=== PATIENT | female | born 1945 | race Caucasian/White ===

== ENCOUNTER 2018-04-24 09:49 | Inpatient (IN) | payer MEDICARE, OTHER ==
[~2018-04-24] VITALS: Ht 165.1 cm; Wt 56.7 kg
[2018-04-24] MEDS ORDERED: TEMAZEPAM 7.5 MG CAPSULE PO PRN (13:30)
[2018-04-24] MEDS ORDERED: MAGNESIUM HYDROXIDE 30 ML UDC PO PRN (13:30)
[2018-04-24] MEDS ORDERED: MAG HYDROX/AL HYDROX/SIMETH 30 ML UDC PO PRN (13:30)
[2018-04-24] MEDS ORDERED: LORAZEPAM 0.5 MG TABLET PO PRN (13:30)
[2018-04-24 17:18] VITALS: BP 131/60
[2018-04-24] MEDS: BENZTROPINE MESYLATE (1 MG) 1 MG TABLET PO SCH (17:32)
[2018-04-24] MEDS: risperiDONE 1 MG TABLET PO SCH (17:33)
--- NOTE | 2018-04-24 17:45 | NUR ---
GPS/RN-NOTES ADMITTED 72 YEARS OLD FEMALE PATIENT FROM [facility]. PATIENT ON 5150 FOR GRAVELY DISABLE ADULT. UPON FACE TO FACE ASSESSMENT PATIENT ALERT ORIENTED X2 WITH CONFUSION AMBULATORY WITH STEADY GAIT. PATIENT'S RIGHT WAS DISCUSS WITH THE PATIENT WITH UNDERSTANDING A BOOKLET WAS GIVEN TO THE PATIENT. PATIENT WAS ORIENTED TO THE UNIT AND UNIT POLICIES. DR. LORENZO ( PSYCHIATRIST ) MADE AWARE BY THE CHARGE NURSE WITH ORDERS. ALSO DR. FONTENOT ( UI SOFTWARE ENGINEER) SEEN THE PATIENT. CALLED [facility] [phone] ( PT. RESPONSIBLE REPUBLICAN)AND LEFT THE MGS. VIA VOICE MAIL. CONTRA BAND AND BODY ASSESSMENT DONE. MRSA SWAB DONE .
[2018-04-24 20:00] VITALS: BP 120/50
[2018-04-25 06:46] LABS: CHOLESTEROL 156 mg/dL (<200); HDL CHOLESTEROL 46 mg/dL (40-60); LDL 105 mg/dL (0-99); TRIGLYCERIDES 59 mg/dL (30-150)
[2018-04-25 06:48] LABS: ALANINE AMINOTRANSFERASE 14 U/L (12-78); ALBUMIN 3.2 g/dL (3.4-5.0); ALKALINE PHOSPHATASE 61 U/L (46-116); ASPARTATE AMINOTRANSFERASE 20 U/L (15-37); BILIRUBIN,TOTAL 0.3 mg/dL (0.2-1.0); CARBON DIOXIDE 29 mmol/L (21-32); CHLORIDE 106 mmol/L (98-107); CREATININE 0.9 mg/dL (0.6-1.3); GLUCOSE 90 mg/dL (74-106); POTASSIUM 3.8 mmol/L (3.5-5.1); SODIUM SERUM 141 mmol/L (136-145); TOTAL PROTEIN, SERUM 6.7 g/dL (6.4-8.2); UREA NITROGEN, BLOOD 19 mg/dL (7-18)
[2018-04-25 08:00] VITALS: BP 138/70
[2018-04-25] MEDS: risperiDONE 1 MG TABLET PO SCH ×2 (08:48→16:35)
[2018-04-25] MEDS: BENZTROPINE MESYLATE (1 MG) 1 MG TABLET PO SCH ×2 (08:48→16:35)
--- NOTE | 2018-04-25 15:54 | NUR ---
Initial Discharge Plan: Pt currently resides home alone at [facility] [place] [address]; ([phone]). Per pt, she would like to return home. SHENG will work with the pt and the MD regarding appropriate discharge planning. SW will form a safe and proper discharge.
[2018-04-25 16:00] VITALS: BP 131/64
[2018-04-25 20:00] VITALS: BP 113/51
[2018-04-26 08:00] VITALS: BP 144/67
[2018-04-26] MEDS: BENZTROPINE MESYLATE (1 MG) 1 MG TABLET PO SCH ×2 (08:36→16:31)
[2018-04-26] MEDS: risperiDONE 1 MG TABLET PO SCH ×2 (08:36→16:31)
[2018-04-26 16:08] VITALS: BP 146/71
[2018-04-26 20:00] VITALS: BP 138/55
[2018-04-26] MEDS: MUPIROCIN OINT 2% 22 GM TUBE SCH (20:57)
[2018-04-27 08:31] VITALS: BP 167/80
[2018-04-27] MEDS: BENZTROPINE MESYLATE (1 MG) 1 MG TABLET PO SCH ×3 (08:34→17:46)
[2018-04-27] MEDS: risperiDONE 1 MG TABLET PO SCH ×3 (08:34→17:46)
[2018-04-27] MEDS: MUPIROCIN OINT 2% 22 GM TUBE SCH ×2 (08:44→21:10)
[2018-04-27 16:00] VITALS: BP 157/65
--- NOTE | 2018-04-27 18:23 | NUR ---
GPS/RN PT STRONGLY REFUSED MEDS SCHEDULED FOR 1700. OFFERED X3. PT STATES: ' I NEVER TAKE MEDICATIONS TWICE DAILY..."
[2018-04-27 20:00] VITALS: BP 147/72
[2018-04-28 07:22] LABS: CALCIUM, SERUM 8.8 mg/dL (8.5-10.1); CARBON DIOXIDE 28 mmol/L (21-32); CHLORIDE 109 mmol/L (98-107); CREATININE 0.7 mg/dL (0.6-1.3); GLUCOSE 98 mg/dL (74-106); POTASSIUM 4.3 mmol/L (3.5-5.1); SODIUM SERUM 144 mmol/L (136-145); UREA NITROGEN, BLOOD 20 mg/dL (7-18)
[2018-04-28 08:00] VITALS: BP 150/70
[2018-04-28] MEDS: risperiDONE 1 MG TABLET PO SCH ×2 (08:47→16:28)
[2018-04-28] MEDS: BENZTROPINE MESYLATE (1 MG) 1 MG TABLET PO SCH ×2 (08:48→16:27)
[2018-04-28] MEDS: MUPIROCIN OINT 2% 22 GM TUBE SCH ×2 (11:20→21:22)
--- NOTE | 2018-04-28 15:48 | NUR ---
SHENG and the psychiatrist, Dr. Gibson, talked to the pt to ask if there is anyone we can talk to in her life who can verify that her home is a safe discharge. The pt was guarded and stated that she would provide that personal information at a later time.
[2018-04-28 16:00] VITALS: BP 140/86
[2018-04-28 18:00] VITALS: BP 140/86
--- NOTE | 2018-04-28 19:30 | NUR ---
GPS RN NOTE, RECEIVED PATIENT AWAKE AND IN BED, NO S/S OR COMPLAINTS OF PAIN AT THIS TIME. PATIENT IS DISPLAYING NO S/S OF APPARENT DISTRESS AT THIS TIME. PATIENT BREATHING IS UNLABORED WITH EQUAL RISE AND FALL OF THE CHEST. PATIENT IS ALERT AND ORIENTED X 2 ON ROOM AIR WITH A SPO2 OF 96%. PATIENT IS MED COMPLIANT, CALM, COOPERATIVE, DISORGANIZED, CONFUSED AT TIMES, AND NEEDS REDIRECTION. PATIENT DENIES SUICIDE IDEATIONS AND HOMICIDAL IDEATIONS AT THIS TIME. PATIENT ASSISTED WITH TURNING AND REPOSITIONING Q 2HRS AND PRN FOR COMFORT AND CIRCULATION. PATIENT HAS NO NEEDS AT THIS TIME. PATIENT EDUCATED ON THE USE OF THE CALL CRANE. PATIENT BED SIDE RAILS UP X 2 FOR SAFETY, BED IS LOCKED, LOW, AND I WILL CONTINUE TO MONITOR AND MAINTAIN SAFETY Q15 MIN WITH THE HELP OF STAFF.
[2018-04-28 20:23] VITALS: BP 145/68
[2018-04-29 08:30] VITALS: BP 158/61
[2018-04-29] MEDS: risperiDONE 1 MG TABLET PO SCH ×2 (09:14→21:20)
[2018-04-29] MEDS: BENZTROPINE MESYLATE (1 MG) 1 MG TABLET PO SCH ×2 (09:14→17:00)
[2018-04-29] MEDS: MUPIROCIN OINT 2% 22 GM TUBE SCH ×2 (09:15→21:17)
[2018-04-29 16:00] VITALS: BP 123/70
[2018-04-29 20:59] VITALS: BP 137/63
[2018-04-30 08:00] VITALS: BP 154/78
[2018-04-30] MEDS: risperiDONE 1 MG TABLET PO SCH ×2 (08:53→21:13)
[2018-04-30] MEDS: BENZTROPINE MESYLATE (1 MG) 1 MG TABLET PO SCH ×2 (09:02→16:28)
[2018-04-30] MEDS: MUPIROCIN OINT 2% 22 GM TUBE SCH ×2 (09:48→21:12)
[2018-04-30 16:12] VITALS: BP 161/98
[2018-04-30 20:30] VITALS: BP 153/70
--- NOTE | 2018-05-01 08:00 | NUR ---
GPS RN AM NOTES RECEIVED PATIENT IN BED, AWAKE, CALM AND COOPERATIVE. NO DISTRESS, NO SOB NOTED. VERBALLY RESPONSIVE.NO C/O PAIN OR DISCOMFORT AT THIS TIME. ALL NEEDS ATTENDED AND MET. KEPT COMFORTABLE. DENIES SI/HI AT THIS TIME. SAFETY PRECAUTIONS OBSERVED. WILL MONITOR PT CLOSELY
[2018-05-01 08:29] VITALS: BP 170/84
[2018-05-01] MEDS: MUPIROCIN OINT 2% 22 GM TUBE SCH ×2 (08:58→20:59)
[2018-05-01] MEDS: BENZTROPINE MESYLATE (1 MG) 1 MG TABLET PO SCH ×2 (08:59→17:15)
[2018-05-01] MEDS: risperiDONE 1 MG TABLET PO SCH ×4 (08:59→21:00)
--- NOTE | 2018-05-01 12:14 | NUR ---
SW called the number on the face sheet ([phone]) for the pt because she is still unable to provide any other contact information and the number was not accurate. A man picked up the phone and stated that a Carin Fredy cannot be reached at that number.
--- NOTE | 2018-05-01 12:19 | NUR ---
SW and psychiatrist, Dr. Tim, went to speak to the pt about providing contact information for the SW to follow up on so that we can ensure a safe discharge plan. Pt stated that she has a home that she does not feel ready to return to at this time and stated that she needs her phone.
[2018-05-01 16:45] VITALS: BP 159/70
--- NOTE | 2018-05-01 18:12 | NUR ---
PT ATE DINNER IN BED.WITH NO SI/HI EPISODE AND IS IN A GOOD MOOD GETTING ALONG WITH HER ROOMATE.TOOK ALL HER MEDS WITHOUT DIFFICULTY.WILL CONTINUE TO MONITOR.
[2018-05-01 20:00] VITALS: BP 124/54
[2018-05-01] MEDS: CARVEDILOL 3.125 MG TABLET PO SCH (20:59)
--- NOTE | 2018-05-01 21:00 | NUR ---
BP 124/54, HR 58, COREG 3,125 MG TAB 1 PO NOT GIVEN.
[2018-05-02 08:00] VITALS: BP 161/79
[2018-05-02] MEDS: BENZTROPINE MESYLATE (1 MG) 1 MG TABLET PO SCH ×2 (08:37→16:36)
[2018-05-02] MEDS: risperiDONE 1 MG TABLET PO SCH ×3 (08:38→21:43)
[2018-05-02] MEDS: CARVEDILOL 3.125 MG TABLET PO SCH ×2 (08:38→21:45)
[2018-05-02] MEDS: MUPIROCIN OINT 2% 22 GM TUBE SCH ×2 (08:40→21:49)
--- NOTE | 2018-05-02 15:09 | NUR ---
SW went in to speak to the pt and she stated that she does not have any family or friends. She stated that she is also unsure of if she wants to return home. Pt stated that she is feeling better and affect seems to be calm and pleasant.
[2018-05-02 16:00] VITALS: BP 132/60
[2018-05-02 20:00] VITALS: BP 138/66
[2018-05-03 08:00] VITALS: BP 150/80
[2018-05-03] MEDS: risperiDONE 1 MG TABLET PO SCH ×3 (08:49→21:02)
[2018-05-03] MEDS: CARVEDILOL 3.125 MG TABLET PO SCH ×2 (08:50→21:02)
[2018-05-03] MEDS: BENZTROPINE MESYLATE (1 MG) 1 MG TABLET PO SCH ×2 (08:50→16:48)
[2018-05-03] MEDS: MUPIROCIN OINT 2% 22 GM TUBE SCH ×2 (08:51→21:03)
[2018-05-03] MEDS: AMLODIPINE BESYLATE 5 MG TABLET PO SCH (09:00)
[2018-05-03 16:00] VITALS: BP 148/67
[2018-05-03 20:13] VITALS: BP 144/65
[2018-05-04 08:00] VITALS: BP 158/69
[2018-05-04] MEDS: AMLODIPINE BESYLATE 5 MG TABLET PO SCH (09:15)
[2018-05-04] MEDS: BENZTROPINE MESYLATE (1 MG) 1 MG TABLET PO SCH ×2 (09:17→16:52)
[2018-05-04] MEDS: CARVEDILOL 3.125 MG TABLET PO SCH ×3 (09:17→20:43)
[2018-05-04] MEDS: risperiDONE 1 MG TABLET PO SCH ×3 (09:28→21:58)
[2018-05-04] MEDS: MUPIROCIN OINT 2% 22 GM TUBE SCH ×2 (12:42→20:31)
[2018-05-04 16:00] VITALS: BP 167/67
--- NOTE | 2018-05-04 19:30 | NUR ---
RECEIVED PATIENT IN BED AWAKE, AO X 3, ABLE TO MAKE NEEDS KNOWN. NO ACUTE DISTRESS NOTED. DENIES ANY PAIN AT THIS TIME. SAFETY REMINDERS GIVEN. ON LOW BED WITH BILATERAL UPPER SIDE RAILS UP. CALL CRANE WITHIN EASY REACH. WILL CONTINUE TO MONITOR.
[2018-05-04 20:00] VITALS: BP 141/58
--- NOTE | 2018-05-04 20:44 | NUR ---
PATIENT REFUSED COREG. EDUCATION GIVEN. PATIENT STRONGLY REFUSED; GOT EXTREMELY ANGRY. COREG NOT GIVEN.
--- NOTE | 2018-05-04 21:58 | NUR ---
PATIENT REFUSED RISPERDAL;THREW MEDICINE AND APPLESAUCE TO NURSE. EDUCATION GIVEN. PATIENT IS VERY ANGRY. RISPERDAL NOT GIVEN.
--- NOTE | 2018-05-05 06:00 | NUR ---
PATIENT ASLEEP, EASILY AROUSABLE. RESPIRATIONS EVEN. NO SIGNS OF PAIN NOTED. NEEDS ATTENDED. SAFETY PRECAUTIONS AND COMFORT MEASURES IN PLACE. WILL GIVE REPORT TO DAY SHIFT FOR CONTINUITY OF CARE.
[2018-05-05 08:00] VITALS: BP 146/60
[2018-05-05] MEDS: AMLODIPINE BESYLATE 5 MG TABLET PO SCH (08:56)
[2018-05-05] MEDS: risperiDONE 1 MG TABLET PO SCH ×3 (08:56→21:03)
[2018-05-05] MEDS: BENZTROPINE MESYLATE (1 MG) 1 MG TABLET PO SCH ×2 (08:56→17:45)
[2018-05-05] MEDS: CARVEDILOL 3.125 MG TABLET PO SCH ×2 (08:57→20:59)
[2018-05-05] MEDS: MUPIROCIN OINT 2% 22 GM TUBE SCH ×2 (09:02→21:18)
--- NOTE | 2018-05-05 10:36 | NUR ---
SW spoke to the pt who became agitated when asked questions about her home. She became verbally aggressive with the SW and stated that she wants to stay in the hospital until she receives the appropriate amount of care.
--- NOTE | 2018-05-05 14:23 | NUR ---
SHENG called Magdalena Lindsey ([phone]), from [facility], and left a message on her voicemail stating that the pt needs transportation back to [facility] tomorrow.
[2018-05-05 16:00] VITALS: BP 140/73
[2018-05-05 21:13] VITALS: BP 129/57
[2018-05-06 08:00] VITALS: BP 118/65
[2018-05-06] MEDS: BENZTROPINE MESYLATE (1 MG) 1 MG TABLET PO SCH (08:39)
[2018-05-06] MEDS: risperiDONE 1 MG TABLET PO SCH ×2 (08:39→13:23)
[2018-05-06 08:40] VITALS: BP 116/65
[2018-05-06] MEDS: CARVEDILOL 3.125 MG TABLET PO SCH (08:40)
[2018-05-06] MEDS: AMLODIPINE BESYLATE 5 MG TABLET PO SCH (08:40)
[2018-05-06] MEDS: MUPIROCIN OINT 2% 22 GM TUBE SCH (08:49)
--- NOTE | 2018-05-06 12:00 | NUR ---
SHENG called [facility] ([phone]) and arranged transportation with a man named Lavonne for a 12:30-1pm fiber picker.
--- NOTE | 2018-05-06 14:13 | NUR ---
SHENG called Lavonne ([phone]) at [facility] and confirmed that the transportation was on their way to pick up operator the pt.
--- NOTE | 2018-05-06 14:30 | NUR ---
[id number]: PT IS 72 YEARS OLD FEMALE DISCHARGE TO HOME LOCATED AT [address] [place] [address], [facility] [address]; [phone] IN STABLE CONDITION. COMPLIANT WITH MEDICATIONS, COOPERATIVE WITH TREATMENT PLANS. PT DENIES SI/HI/AVH AND INSTRUCTED TO GO TO THE CLOSEST ER IF DEVELOPING SI/HI. BEHAVIOR IMPROVED, PSYCHIATRIC TX PLANS MET, MEDICAL TX PLAN DIFFERED FOR CONTINUAL MONITORING. EDUCATED PT ABOUT AFTER CARE PLAN AND COPY PROVIDED. RETURNED PERSONAL BELONGINGS TO PT. MEDICATION RECONCILED WITH DR. LORENZO AND DR. VARELA. PT SIGNED DISCHARGE PAPERWORK. SKIN INTACT. PT LEFT VIA POLICE JUDGE FROM [place] NAMED BETSY.
--- NOTE | 2018-05-06 15:09 | NUR ---
SHENG faxed a home health referral to [facility] to the fax number: [phone].
--- NOTE | 2018-05-06 15:15 | NUR ---
Pt was referred to [facility] located at [address] [place] [address] [address], [place] [address]; p: . A fax was sent with the pt's information to the fax number: .
--- NOTE | 2018-05-06 15:15 | NUR ---
Discharge Note: Pt was discharged home to [address] [place] [address]; ([phone]). Pts city driver from [place] arrived around 2PM and transported her back to her home. Upon discharge, the pt appeared to be in a euthymic mood with a calm affect. Pt was content about being discharged home because she was concerned that she would be placed in a long-term facility. Pt denied both suicidal and homicidal ideation upon discharge as well as both auditory and visual hallucinations. Pt was referred to [facility] and her packet was faxed to [phone]. Pt was also referred to be under the care of a psychiatrist at [facility] located at [address] [facility] [address], [place] [address]; p: and f: and was referred to an seam feller, Dr. Clay Barrett, located at [address], [place] [address]; p: .
== END 2018-05-06 14:30 | disposition home or self-care (01) | DRG 885 ==
LOC: GPS 12:31
PROVIDERS: ADMIT Psychiatry & Neurology Psychiatry; ATTEND Family Medicine
DX: F25.0 Schizoaffective disorder, bipolar type (principal); N17.0 Acute kidney failure with tubular necrosis; K21.9 Gastro-esophageal reflux disease without esophagitis; F41.0 Panic disorder [episodic paroxysmal anxiety]; E86.9 Volume depletion, unspecified; I10 Essential (primary) hypertension; Z73.6 Limitation of activities due to disability; F41.9 Anxiety disorder, unspecified; Z22.322 Carrier or suspected carrier of Methicillin resistant Staphylococcus aureus; F29 Unspecified psychosis not due to a substance or known physiological condition
CPT/HCPCS: 36415; 80048-TC; 80053-TC; 80061-TC; 87081-TC; Z7610

== ENCOUNTER 2019-01-24 10:37 | Inpatient (IN) | payer MEDICARE, OTHER ==
[~2019-01-24] VITALS: Ht 165.1 cm; Wt 65.8 kg
[2019-01-24] MEDS ORDERED: LORAZEPAM 0.5 MG TABLET PO PRN (11:00)
[2019-01-24] MEDS ORDERED: MAGNESIUM HYDROXIDE 30 ML UDC PO PRN (11:00)
[2019-01-24] MEDS ORDERED: MAG HYDROX/AL HYDROX/SIMETH 30 ML UDC PO PRN (11:00)
[2019-01-24] MEDS ORDERED: NITR100C6 PO (11:09)
[2019-01-24] MEDS ORDERED: AMLO5TAB9 PO (11:09)
[2019-01-24 11:30] VITALS: BP 142/72
--- NOTE | 2019-01-24 12:55 | NUR ---
GPS/RN-NOTES ADMITTED 73 YEARS OLD FEMALE PATIENT. UPON FACE TO FACE ASSESSMENT,PATIENT ON 5150 HOLD FOR DTS, ADVISEMENT AND PATIENT'S RIGHT WAS REVIEWED AND GIVEN TO THE PATIENT .PATIENT ALERT ORIENTED X3 . PATIENT AMBULATORY STEADY GAIT. PATIENT DID NOT VERBALIZE SI/HI,DENIES VISUAL /AUDITORY HALLUCINATION AT THIS TIME. PATIENT WAS ORIENTED IN THE UNIT AND UNIT POLICIES. FULL BODY ASSESSMENT DONE . MRSA DONE SENT TO THE LAB. DR. RASHEED ( PSYCHIATRIST) SEEN THE PATIENT WITH ORDERS. SANDRA MALIK (INDUSTRIAL ENG) ALSO SEEN THE PATIENT AND WILL RECONCILE PATIENT'S MEDICATIONS.PATIENT STATED " I DON'T WANT ANYONE TO KNOW THAT I'M HERE,I ALREADY SIGN THE CONSENT" . PATIENT WAS COOPERATIVE DURING ADMISSION PROCESS.
[2019-01-24 13:02] LABS: BASOPHILS % (AUTO) 0.8 % (0.0-2.0); EOSINOPHILS % (AUTO) 6.7 % (0.0-6.0); HEMATOCRIT 41 % (33-45); HEMOGLOBIN 13.5 g/dL (11.5-14.8); LYMPHOCYTES # (AUTO) 1.6 /CMM (0.8-4.8); LYMPHOCYTES % (AUTO) 26.6 % (20.0-44.0); MEAN CORPUSCULAR HGB CONC 33 g/dl (31.0-36.0); MEAN CORPUSCULAR VOLUME 90 fL (82-100); MONOCYTES # (AUTO) 0.4 /CMM (0.1-1.30); MONOCYTES % (AUTO) 7.4 % (2.0-12.0); NEUTROPHILS # (AUTO) 3.5 /CMM (1.8-8.9); NEUTROPHILS % (AUTO) 58.5 % (43.0-81.0); PLATELET COUNT (AUTO) 204 /CMM (150-450); RED BLOOD CELL COUNT(AUTO) 4.52 MIL/uL (4.0-5.2); WHITE BLOOD COUNT (AUTO) 5.9 K/uL (4.3-11.0)
[2019-01-24 13:45] LABS: ALANINE AMINOTRANSFERASE 19 U/L (12-78); ALBUMIN 3.6 g/dL (3.4-5.0); ALKALINE PHOSPHATASE 65 U/L (46-116); ASPARTATE AMINOTRANSFERASE 17 U/L (15-37); BILIRUBIN,TOTAL 0.5 mg/dL (0.2-1.0); CALCIUM, SERUM 8.9 mg/dL (8.5-10.1); CARBON DIOXIDE 28 mmol/L (21-32); CHLORIDE 107 mmol/L (98-107); GLUCOSE 126 mg/dL (74-106); MAGNESIUM 2.1 mg/dL (1.8-2.4); PHOSPHORUS 3.1 mg/dL (2.5-4.9); POTASSIUM 3.3 mmol/L (3.5-5.1); SODIUM SERUM 143 mmol/L (136-145); TOTAL PROTEIN, SERUM 7.1 g/dL (6.4-8.2); UREA NITROGEN, BLOOD 13 mg/dL (7-18)
[2019-01-24 13:46] LABS: CHOLESTEROL 145 mg/dL (<200); HDL CHOLESTEROL 46 mg/dL (40-60); LDL 92 mg/dL (0-99); TRIGLYCERIDES 61 mg/dL (30-150)
[2019-01-24 13:47] LABS: THYROID STIMULATING HORMONE 0.651 uIU/mL (0.358-3.74)
[2019-01-24] MEDS ORDERED: POTASSIUM CHLORIDE 20 MEQ TAB.PRT.SR PO ONE (15:30)
[2019-01-24] MEDS: risperiDONE 1 MG TABLET PO SCH ×2 (15:41→21:26)
[2019-01-24 16:00] VITALS: BP 103/57
[2019-01-24] MEDS: NITROFURANTOIN/NITROFURAN MAC 100 MG CAPSULE PO SCH (16:01)
[2019-01-24 17:47] LABS: APPEARANCE,URINE CLEAR (CLEAR); BILIRUBIN,URINE 1+ (NEGATIVE); BLOOD, URINE NEGATIVE Ery/uL (NEGATIVE); COLOR,URINE YELLOW (YELLOW); KETONES,URINE TRACE (NEGATIVE); LEUKOCYTE ESTERASE ,URINE 2+ (NEGATIVE); NITRITE, URINE NEGATIVE (NEGATIVE); PROTEIN,URINE TRACE mg/dl (NEGATIVE); UGLUCOSE NEGATIVE (NEGATIVE)
[2019-01-24 18:03] LABS: BACTERIA,URINE 1+ /HPF (None Seen); SQUAMOUS EPITHELIAL CELL,UR 0-2 /HPF (None Seen)
[2019-01-24 18:04] LABS: CALCIUM OXALATE CRYSTALS,UR RARE /HPF (None Seen); MUCUS,URINE Few /LPF (None Seen)
[2019-01-24 19:52] VITALS: BP 106/65
[2019-01-24] MEDS: BENZTROPINE MESYLATE (1 MG) 1 MG TABLET PO SCH (21:26)
[2019-01-24] MEDS: TEMAZEPAM 7.5 MG CAPSULE PO PRN (21:26)
[2019-01-25 08:00] VITALS: BP 145/81
[2019-01-25] MEDS: risperiDONE 1 MG TABLET PO SCH ×2 (08:00→21:00)
[2019-01-25] MEDS: NITROFURANTOIN/NITROFURAN MAC 100 MG CAPSULE PO SCH ×3 (09:00→16:57)
[2019-01-25] MEDS: AMLODIPINE BESYLATE 5 MG TABLET PO SCH (09:59)
[2019-01-25 13:30] LABS: ALANINE AMINOTRANSFERASE 19 U/L (12-78); ALBUMIN 3.3 g/dL (3.4-5.0); ALKALINE PHOSPHATASE 66 U/L (46-116); ASPARTATE AMINOTRANSFERASE 13 U/L (15-37); BILIRUBIN,TOTAL 0.2 mg/dL (0.2-1.0); CALCIUM, SERUM 8.7 mg/dL (8.5-10.1); CARBON DIOXIDE 29 mmol/L (21-32); CHLORIDE 107 mmol/L (98-107); CREATININE 1.1 mg/dL (0.6-1.3); GLUCOSE 90 mg/dL (74-106); POTASSIUM 3.8 mmol/L (3.5-5.1); SODIUM SERUM 142 mmol/L (136-145); TOTAL PROTEIN, SERUM 6.6 g/dL (6.4-8.2); UREA NITROGEN, BLOOD 17 mg/dL (7-18)
[2019-01-25 13:32] LABS: CHOLESTEROL 133 mg/dL (<200); HDL CHOLESTEROL 41 mg/dL (40-60); LDL 82 mg/dL (0-99); TRIGLYCERIDES 90 mg/dL (30-150)
[2019-01-25 16:00] VITALS: BP 126/68
[2019-01-25 20:00] VITALS: BP 113/58
[2019-01-25] MEDS: BENZTROPINE MESYLATE (1 MG) 1 MG TABLET PO SCH (21:00)
[2019-01-26 08:00] VITALS: BP 125/67
[2019-01-26] MEDS: AMLODIPINE BESYLATE 5 MG TABLET PO SCH (08:49)
[2019-01-26] MEDS: NITROFURANTOIN/NITROFURAN MAC 100 MG CAPSULE PO SCH ×2 (08:49→16:45)
--- NOTE | 2019-01-26 12:39 | NUR ---
SHENG called the pts friend, Brigitte ([phone]), and did not leave a voicemail message because the name on the mailbox was for Miriam.
--- NOTE | 2019-01-26 12:40 | NUR ---
Initial Discharge Plan: Pt currently resides her home alone located at [address] [place] [address], [place] [address], [place] [address]; ([phone]). Per pt, she would like to return to her home. SHENG will work with the MD and the pt regarding appropriate discharge planning. SW will form a safe and proper discharge.
[2019-01-26 16:00] VITALS: BP 134/70
[2019-01-26 20:17] VITALS: BP 139/63
[2019-01-26] MEDS: TEMAZEPAM 7.5 MG CAPSULE PO PRN (21:25)
[2019-01-26] MEDS: BENZTROPINE MESYLATE (1 MG) 1 MG TABLET PO SCH (21:25)
[2019-01-26] MEDS: risperiDONE 1 MG TABLET PO SCH (21:25)
[2019-01-27 08:00] VITALS: BP 140/63
[2019-01-27] MEDS: NITROFURANTOIN/NITROFURAN MAC 100 MG CAPSULE PO SCH ×2 (09:47→17:04)
[2019-01-27] MEDS: AMLODIPINE BESYLATE 5 MG TABLET PO SCH (09:48)
[2019-01-27 16:00] VITALS: BP 133/63
[2019-01-27 20:26] VITALS: BP 98/43
[2019-01-27] MEDS ORDERED: risperiDONE 1 MG TABLET PO SCH ×2 (21:00)
[2019-01-27] MEDS: BENZTROPINE MESYLATE (1 MG) 1 MG TABLET PO SCH (21:50)
[2019-01-27] MEDS: TEMAZEPAM 7.5 MG CAPSULE PO PRN (21:50)
[2019-01-28 08:00] VITALS: BP 123/50
[2019-01-28] MEDS: NITROFURANTOIN/NITROFURAN MAC 100 MG CAPSULE PO SCH ×2 (08:48→17:49)
[2019-01-28] MEDS: AMLODIPINE BESYLATE 5 MG TABLET PO SCH (09:00)
--- NOTE | 2019-01-28 15:25 | NUR ---
Group Note: Pt refused to attend group on 01/28/19 at 2PM due to her stating that she does not need to interact with the other pts and because she has been improving and is almost ready to be discharged.
[2019-01-28 16:00] VITALS: BP 152/65
--- NOTE | 2019-01-28 19:35 | NUR ---
GPS RN NOTES RECEIVED INSIDE HER ROOM TRYING TO FIX HER BED LINEN.A/O X3,ABLE TO VERBALIZED NEEDS.AMBULATE WITH STEADY GAIT.NO SKIN ISSUES.MED COMPLIANT PER REPORT.WILL CONTINUE TO MONITOR BEHAVIOR.
[2019-01-28 20:08] VITALS: BP 160/64
[2019-01-28] MEDS: BENZTROPINE MESYLATE (1 MG) 1 MG TABLET PO SCH ×2 (20:51→22:24)
[2019-01-28] MEDS: risperiDONE 1 MG TABLET PO SCH ×2 (20:51→22:25)
--- NOTE | 2019-01-28 21:00 | NUR ---
GPS RN NOTES ON BED SLEEPING,TRIED TO WAKE HER UP TO OFFER HER NIGHT MEDS BUT REFUSED.
--- NOTE | 2019-01-28 22:10 | NUR ---
GPS RN NOTES DR RASHEED CALLED AND ASK WHY PATIENT REFUSED HER NIGHT MEDS INCLUDING RISPERDAL.INFORMED THAT PATIENT SAYS SHE HAS THE RIGHT TO REFUSED MEDS. DR RASHEED SAYS TO OFFER IT AGAIN AND LET THE PATIENT KNOW THAT IF SHE REFUSED MEDS,ITS GOING TO HAVE INJECTION WITH COURT ORDER,PATIENT TOOK HER MEDS .DR RASHEED MADE AWARE.
[2019-01-29 08:00] VITALS: BP 147/65
[2019-01-29] MEDS: AMLODIPINE BESYLATE 5 MG TABLET PO SCH (08:37)
[2019-01-29] MEDS: NITROFURANTOIN/NITROFURAN MAC 100 MG CAPSULE PO SCH ×2 (08:37→16:14)
--- NOTE | 2019-01-29 10:03 | NUR ---
PC Hearing Notification: There is no one to notify regarding her PC Hearing.
[2019-01-29 16:00] VITALS: BP 142/73
[2019-01-29 20:00] VITALS: BP 119/64
[2019-01-29] MEDS: BENZTROPINE MESYLATE (1 MG) 1 MG TABLET PO SCH (21:00)
[2019-01-29] MEDS: risperiDONE 1 MG TABLET PO SCH (21:00)
--- NOTE | 2019-01-29 21:45 | NUR ---
PT REFUSED SCHEDULED MEDICATIONS OFFER 3X EXPLAIN THE RISK AND BENEFITS OF NOT TAKING IT PT STILL REFUSED.
[2019-01-30 08:00] VITALS: BP 151/72
[2019-01-30] MEDS: NITROFURANTOIN/NITROFURAN MAC 100 MG CAPSULE PO SCH ×2 (08:24→16:29)
[2019-01-30] MEDS: AMLODIPINE BESYLATE 5 MG TABLET PO SCH (08:24)
--- NOTE | 2019-01-30 10:42 | NUR ---
aLuri Erwin ([phone]) from [facility] and she stated that there is an APS report and that they need to be contacted when she is discharged because they have resources set up for her such as in home, medication management and meals on wheels. She also asked if it would be possible to order a CT scan for the pt and SW stated she would ask.
[2019-01-30 16:00] VITALS: BP 136/68
--- NOTE | 2019-01-30 19:41 | NUR ---
GPS RN NOTES RECEIVED PT ON BED. COMFORTABLE, RELAX. NO AGGRESSIVE BEHAVIOR NOTED.
[2019-01-30 20:06] VITALS: BP 150/67
[2019-01-30] MEDS: BENZTROPINE MESYLATE (1 MG) 1 MG TABLET PO SCH (21:00)
[2019-01-30] MEDS: risperiDONE 1 MG TABLET PO SCH (21:00)
--- NOTE | 2019-01-30 22:21 | NUR ---
GPS RN NOTES PT REFUSING MED. EXPLAINED RISK AND BENEFITS. PT STILL REFUSED.
--- NOTE | 2019-01-30 23:48 | NUR ---
GPS RN NOTES PT SLEEPING COMFORTABLE, NO RESPIRATORY DISTRESS NOTED
[2019-01-31 08:00] VITALS: BP 147/74
[2019-01-31] MEDS: NITROFURANTOIN/NITROFURAN MAC 100 MG CAPSULE PO SCH ×2 (09:00→09:44)
[2019-01-31] MEDS: AMLODIPINE BESYLATE 5 MG TABLET PO SCH ×2 (09:00→09:45)
--- NOTE | 2019-01-31 14:00 | NUR ---
DR. CHAU MADE AWARE PT. REFUSED PSYCH MEDS LAST NIGHT.
--- NOTE | 2019-01-31 15:26 | NUR ---
Shahana SALGADO SAP DATA ARCHITECT MADE AWARE PT. REFUSED NORVASC MED AND MACROBID THIS AM.HE SPOKE WITH PT.ORDERS GIVEN.
[2019-01-31 16:00] VITALS: BP 144/65
--- NOTE | 2019-01-31 18:00 | NUR ---
NO CHANGE IN STATUS.
[2019-01-31 20:08] VITALS: BP 124/57
[2019-01-31] MEDS: risperiDONE 1 MG TABLET PO SCH (21:00)
[2019-01-31] MEDS: BENZTROPINE MESYLATE (1 MG) 1 MG TABLET PO SCH (21:00)
[2019-02-01 06:53] LABS: BASOPHILS % (AUTO) 0.5 % (0.0-2.0); EOSINOPHILS % (AUTO) 20.1 % (0.0-6.0); HEMATOCRIT 37 % (33-45); HEMOGLOBIN 12.5 g/dL (11.5-14.8); LYMPHOCYTES # (AUTO) 1.1 /CMM (0.8-4.8); LYMPHOCYTES % (AUTO) 17.4 % (20.0-44.0); MEAN CORPUSCULAR HGB CONC 33 g/dl (31.0-36.0); MEAN CORPUSCULAR VOLUME 90 fL (82-100); MONOCYTES # (AUTO) 0.9 /CMM (0.1-1.30); MONOCYTES % (AUTO) 14.4 % (2.0-12.0); NEUTROPHILS # (AUTO) 2.9 /CMM (1.8-8.9); NEUTROPHILS % (AUTO) 47.6 % (43.0-81.0); PLATELET COUNT (AUTO) 194 /CMM (150-450); RED BLOOD CELL COUNT(AUTO) 4.17 MIL/uL (4.0-5.2); WHITE BLOOD COUNT (AUTO) 6.1 K/uL (4.3-11.0)
[2019-02-01 07:10] LABS: CALCIUM, SERUM 8.6 mg/dL (8.5-10.1); CARBON DIOXIDE 26 mmol/L (21-32); CHLORIDE 108 mmol/L (98-107); CREATININE 0.7 mg/dL (0.6-1.3); GLUCOSE 94 mg/dL (74-106); MAGNESIUM 2.2 mg/dL (1.8-2.4); PHOSPHORUS 3.5 mg/dL (2.5-4.9); SODIUM SERUM 141 mmol/L (136-145); UREA NITROGEN, BLOOD 18 mg/dL (7-18)
[2019-02-01 08:00] VITALS: BP 140/71
[2019-02-01] MEDS: AMLODIPINE BESYLATE 5 MG TABLET PO SCH (08:26)
[2019-02-01 09:24] LABS: EOSINOPHILS % (MANUAL) 18 % (0-4); LYMPHOCYTES % (MANUAL) 19 % (16-48); MONOCYTES % (MANUAL) 13 % (0-11.0); NEUTROPHILS % (MANUAL) 50 (42-76)
[2019-02-01 16:00] VITALS: BP 137/75
--- NOTE | 2019-02-01 19:30 | NUR ---
GPS RN NOTE, RECEIVED PATIENT AWAKE AND IN BED, NO S/S OR COMPLAINTS OF PAIN AT THIS TIME. PATIENT IS DISPLAYING NO S/S OF APPARENT DISTRESS AT THIS TIME. PATIENT BREATHING IS UNLABORED WITH EQUAL RISE AND FALL OF THE CHEST. PATIENT IS ALERT AND ORIENTED X 3 ON ROOM AIR WITH A SPO2 OF 99 %. PATIENT IS MED SELECTIVE, DISORGANIZED, ANXIOUS, ISOLATIVE, DEPRESSED, COOPERATIVE, AND NEEDS REORIENTATION. PATIENT SKIN IS INTACT. PATIENT DENIES SUICIDE AND HOMICIDAL IDEATIONS AT THIS TIME. PATIENT ASSISTED WITH TURNING AND REPOSITIONING Q2HR AND PRN FOR COMFORT AND CIRCULATION. PATIENT HAS NO NEEDS AT THIS TIME. PATIENT EDUCATED ON THE USE OF THE CALL CRANE. PATIENT BED SIDE RAILS ARE UP X 2 FOR SAFETY, BED IS LOCKED, AND LOW WILL CONTINUE TO MONITOR AND MAINTAIN SAFETY.
[2019-02-01 20:38] VITALS: BP 139/68
[2019-02-01] MEDS: BENZTROPINE MESYLATE (1 MG) 1 MG TABLET PO SCH (21:00)
[2019-02-01] MEDS: risperiDONE 1 MG TABLET PO SCH (21:00)
--- NOTE | 2019-02-01 21:56 | NUR ---
GPS RN NOTE, PATIENT REFUSED COGENTIN 0.5MG PO Q 2100 AND RISPERDAL 1 MG PO Q2100. OFFERED COGENTIN AND RISPERDAL THREE TIMES AND STILL PATIENT REFUSED STATING, " I DON'T LIKE THE WAY THOSE MEDICATIONS MAKE ME FEEL AND I DON'T HEAR VOICES ". EDUCATED PATIENT ON THE RISKS AND BENEFITS OF TAKING AND REFUSING AFOREMENTIONED MEDICATION. WILL CONTINUE TO MONITOR THIS PATIENT.
[2019-02-02 08:00] VITALS: BP 148/75
[2019-02-02] MEDS: AMLODIPINE BESYLATE 5 MG TABLET PO SCH (09:13)
[2019-02-02 16:00] VITALS: BP 157/76
[2019-02-02 20:23] VITALS: BP 154/70
[2019-02-02] MEDS: BENZTROPINE MESYLATE (1 MG) 1 MG TABLET PO SCH (21:00)
[2019-02-02] MEDS: risperiDONE 1 MG TABLET PO SCH (21:00)
[2019-02-03 08:00] VITALS: BP 150/69
[2019-02-03] MEDS: AMLODIPINE BESYLATE 5 MG TABLET PO SCH (08:22)
--- NOTE | 2019-02-03 14:40 | NUR ---
SW informed the pt about her upcoming Riese hearing and informed her that was the reason for her prolonged discharge. Pt expressed her frustrations with her medications and the SW informed her that she would need to speak to her psychiatrist. Pt stated that she will discuss it and will consider taking the medications if the psychiatrist deems it necessary.
[2019-02-03 16:00] VITALS: BP 143/73
--- NOTE | 2019-02-03 18:40 | NUR ---
RN NOTE: HAD A CONVERSATION TODAY REGARDING HER CONCERNS WITH HER RISPERDAL AND THE RIESE FILED. I EXPLAINED TO HER THE REASON WHY SHE IS BEING RIESED AND HOW COMPLIANCE WITH PSYCH MEDICATIONS CAN PREVENT IT. PATIENT AGREED TO TAKING THE RISPERDAL LONG ITS AT 1999. PATIENT IS ALSO CURIOUS ABOUT ABILIFY AND WANTS TO MENTIONS THAT MEDICATION TO THE PSYCHIATRIST. WILL ENDORSE TO RN FROM FOLLOWING SHIFT TO BRING UP THE MEDICATION AND FOR THE PSYCHIATRIST TO REVIEW PLAN OF CARE/ MED MANAGEMENT WITH THE PATIENT. Addendum: 02/03/19 at 1851 by MONICA DENISE RN INFORMED DR RASHEED THAT PATIENT WANTS TO DISCUSS ABILIFY
--- NOTE | 2019-02-03 19:30 | NUR ---
GPS RN NOTE, RECEIVED PATIENT AWAKE AND IN BED, NO S/S OR COMPLAINTS OF PAIN AT THIS TIME. PATIENT IS DISPLAYING NO S/S OF APPARENT DISTRESS AT THIS TIME. PATIENT BREATHING IS UNLABORED WITH EQUAL RISE AND FALL OF THE CHEST. PATIENT IS ALERT AND ORIENTED X 3 ON ROOM AIR WITH A SPO2 OF 99 %. PATIENT IS MED SELECTIVE, DISORGANIZED, ANXIOUS, ISOLATIVE, DEPRESSED, COOPERATIVE, AND NEEDS REORIENTATION. PATIENT DENIES SUICIDE AND HOMICIDAL IDEATIONS AT THIS TIME. PATIENT ASSISTED WITH TURNING AND REPOSITIONING Q2HR AND PRN FOR COMFORT AND CIRCULATION. PATIENT HAS NO NEEDS AT THIS TIME. PATIENT EDUCATED ON THE USE OF THE CALL CRANE. PATIENT BED SIDE RAILS ARE UP X 2 FOR SAFETY, BED IS LOCKED, AND LOW WILL CONTINUE TO MONITOR AND MAINTAIN SAFETY.
[2019-02-03 20:46] VITALS: BP 114/68
--- NOTE | 2019-02-03 21:12 | NUR ---
GPS RN NOTE, PATIENT HAS A COMPLAINT OF HAVING 2 EPISODES OF DIARRHEA AND WOULD LIKE MEDICATION. PATIENT ENCOURAGED TO INCREASE HYDRATION. PAGED [facility] AND INFORMED SADIE POPE DNP OF MY FINDINGS. SADIE POPE DNP ORDERED IMODIUM 2 MG CAP PO Q6HR PRN. ALL ORDERS NOTED AND CARRIED OUT WILL CONTINUE TO MONITOR.
[2019-02-03] MEDS ORDERED: LOPERAMIDE HCL (2 MG CAP) 2 MG CAPSULE PO PRN (21:30)
[2019-02-03] MEDS: BENZTROPINE MESYLATE (1 MG) 1 MG TABLET PO SCH (21:45)
[2019-02-03] MEDS ORDERED: ARIPIPRAZOLE 5 MG TABLET PO SCH (22:00)
[2019-02-04 08:00] VITALS: BP 148/68
[2019-02-04] MEDS: AMLODIPINE BESYLATE 5 MG TABLET PO SCH (08:10)
[2019-02-04] MEDS: ARIPIPRAZOLE 5 MG TABLET PO SCH ×2 (10:14→20:02)
--- NOTE | 2019-02-04 15:55 | NUR ---
SW called the pts brother, Brando ([phone]), who informed the SW that he is out of town and will not be able to help assist with the pts transportation and provided the phone number for their sister, Cami ([phone]), who he stated may be able to help.
[2019-02-04 16:00] VITALS: BP 151/75
--- NOTE | 2019-02-04 16:07 | NUR ---
Scale Expert Group Session-- Goal: Patient will attend group being held today from 11am -11:45 in the activities room and participate and/or actively listen to peers and be respectful. Intervention: SW invited patient to attend group session with peers regarding: the goal or positive outcome/s each pt. would like to see happen as a result of their stay in [facility]. SW respected patient�s self-determination and will continue to invite patient to future group sessions. Response: Patient declined to participate in today�s group executive secretary social welfare session. Plan: Patient will be invited to attend next executive secretary social welfare group held.
--- NOTE | 2019-02-04 16:16 | NUR ---
SHENG called [facility] and was told to call back on the day of her discharge so that an appointment can be made for the pt.
[2019-02-04 19:54] VITALS: BP 126/60
[2019-02-04] MEDS: BENZTROPINE MESYLATE (1 MG) 1 MG TABLET PO SCH (20:01)
[2019-02-05 08:00] VITALS: BP 123/65
[2019-02-05] MEDS: AMLODIPINE BESYLATE 5 MG TABLET PO SCH (08:23)
[2019-02-05] MEDS: ARIPIPRAZOLE 5 MG TABLET PO SCH (08:23)
--- NOTE | 2019-02-05 10:13 | NUR ---
SW called the pts sister, Cami ([phone]), and was unable to speak to her because the person on the phone hung up on the SW. The SW attempted two more times and was unsuccessful.
--- NOTE | 2019-02-05 10:14 | NUR ---
SHENG called [facility] and asked to speak to the Cottage Master. SHENG spoke to Brandi Roa the Behavioral Health Director who stated that she would have a head stock transfer clerk call the to set up transport.
--- NOTE | 2019-02-05 11:00 | NUR ---
RN-CO: DR RASHEED SEEN AND EXAMINED THE PATIENT WITH ORDERS TO DISCONTINUE HOLD AND DISCHARGE PATIENT, NOTED.
--- NOTE | 2019-02-05 11:57 | NUR ---
SHENG called Reny Meier ([phone]) in response to her voicemail and set up transportation for the pt for today around 5-6PM. SHENG stated that the pt will be ready at that time.
--- NOTE | 2019-02-05 12:03 | NUR ---
SHENG called [facility] and was transferred to [place] who set up an appointment for the pt on February 13 at 10:30AM with the pt present for psychiatric services. [place] asked the SHENG to fax records before the pts appointment to [phone].
--- NOTE | 2019-02-05 15:14 | NUR ---
Discharge Note: Pt was discharged to her home located at [address] [place] [address], [place] , [place] [address]; ([phone]). Pt was picked up by the [facility] around 5-6PM. Upon discharge, the pt appeared to be in a euthymic mood and presented with an anxious affect. Pt denied both suicidal and homicidal ideation as well as auditory and visual hallucinations. Pt was referred to [facility] for psychiatric services located at [address] [place] [address]; ([phone]). Pt has an appointment on 02/13/19 at 10:30AM. Pt will also be under the care of her certified peer specialist, Dr. Clay Barrett, located at [address] [place] [address]; .
[2019-02-05 16:23] VITALS: BP 146/76
--- NOTE | 2019-02-05 16:32 | NUR ---
SHENG faxed discharge paperwork to [facility] to the fax number: [phone].
--- NOTE | 2019-02-05 19:05 | NUR ---
FRESH [employer]ODS CLERK NOTE: PATIENT IS A 73 YEAR OLD FEMALE DISCHARGED TO HER HOME LOCATED AT [address] [id number] . PATIENT IS IN STABLE CONDITION. COMPLIANT WITH MEDICATION MANAGEMENT. COOPERATIVE WITH PLAN OF CARE. VSS. NO ACUTE DISTRESS NOTED. NO COMPLAINTS. DENIES SI/HI VAH AT THE TIME OF DISCHARGE. BEHAVIOR IMPROVED. PSYCHIATRIC TREATMENT PLANS MET. MEDICAL TREATMENT PLANS DEFERRED FOR CONTINUAL MONITORING. EDUCATED PATIENT ABOUT AFTERCARE WITH COPY PROVIDED. RETURNED PERSONAL BELONGINGS TO PATIENT. DISCHARGE PAPERWORK EXPLAINED AND SIGNED. SKIN INTACT. MEDICATIONS RECONCILED WITH SANDRA ANNE AND DR RASHEED WITH PSYCHIATRIC DISCHARGE ORDERS.FOR FOLLOW UP WITH PSYCHIATRIST [facility] LOCATED AT [address] [facility] [phone] ON 02/13/2019 AT 10:30AM AND ANTIQUE CLOCKS REPAIRER DR NHI [facility] LOCATED AT [address] [facility] [id number] IN 1 WEEK. PATIENT LEFT [facility] VIA [facility] AT 1900 .
== END 2019-02-05 19:00 | disposition home or self-care (01) | DRG 885 ==
LOC: GPS 10:37
PROVIDERS: ADMIT Psychiatry & Neurology Psychosomatic Medicine; ATTEND Registered Nurse
DX: F29 Unspecified psychosis not due to a substance or known physiological condition (principal); N39.0 Urinary tract infection, site not specified; E44.0 Moderate protein-calorie malnutrition; E78.5 Hyperlipidemia, unspecified; B96.89 Other specified bacterial agents as the cause of diseases classified elsewhere; F41.9 Anxiety disorder, unspecified; I10 Essential (primary) hypertension; E87.6 Hypokalemia; Z68.24 Body mass index [BMI] 24.0-24.9, adult; G89.29 Other chronic pain; M54.2 Cervicalgia; M54.9 Dorsalgia, unspecified; Z91.19 Patient's noncompliance with other medical treatment and regimen; Z88.0 Allergy status to penicillin; K21.9 Gastro-esophageal reflux disease without esophagitis; F41.0 Panic disorder [episodic paroxysmal anxiety]
CPT/HCPCS: 36415; 70450-TC; 80048-TC; 80053-TC; 80061-TC; 81000-TC; 83735-TC; 84100-TC; 84443-TC; 85025-TC; 87081-TC; 87086-TC